=== PATIENT | female | born 1990 | race Caucasian/White ===

== ENCOUNTER → 2017-07-07 | Outpatient (CLI) | payer OTHER ==
[~2017-07-07] MED LIST: ACET-749 PO; BUSP15TA70 PO; CEPH-571 PO; MTR600X PO; PRENTAB65 PO; VALA500T39 PO
== END | disposition home or self-care (01) ==
LOC: C.LAB1850 07:34
PROVIDERS: ATTEND Obstetrics & Gynecology
DX: O09.00 Supervision of pregnancy with history of infertility, unspecified trimester (principal)

== ENCOUNTER → 2017-08-13 | Outpatient (CLI) | payer OTHER ==
[2017-08-13 15:33] LABS: BASO % 0.1 %; BASO ABS # 0.01 K/uL (0-0.2); COMPLETE YES; HEMATOCRIT 35.2 % (37-47); IG% 0.2 %; LYMPH % 23.7 %; LYMPH ABS # 2.08 K/uL (1.2-3.4); MEAN CELL VOLUME 85.6 fL (80-100); MEAN CORPUSCULAR HEMOGLOBIN 28.5 pg (25-34); MEAN CORPUSCULAR HGB CONC 33.2 g/dl (32-36); MEAN PLATELET VOLUME 11.8 fL (7.4-10.4); PLATELET COUNT 129 K/uL (130-400); RED BLOOD COUNT 4.11 M/uL (4.2-5.4); WHITE BLOOD COUNT 8.77 K/uL (4.8-10.8)
[2017-08-13 18:46] LABS: URINE APPEARANCE CLEAR (CLEAR); URINE BILIRUBIN NEG (NEG); URINE COLOR YELLOW; URINE EPITHELIAL CELL AUTO 20-30 /lpf (0-5); URINE NITRITE NEG (NEG); URINE PH 6.5 (4.5-7.5); URINE SPECIFIC GRAVITY 1.012 (1.000-1.030); UROBILINOGEN NEG (NEG)
[2017-08-13 19:04] LABS: MANUAL MICROSCOPIC REQUIRED? NO; REVIEW REQ? NO
== END | disposition home or self-care (01) ==
LOC: C.LAB1850 14:45
PROVIDERS: ATTEND Obstetrics & Gynecology
DX: O30.049 Twin pregnancy, dichorionic/diamniotic, unspecified trimester (principal)

== ENCOUNTER → 2017-08-13 | Outpatient (CLI) | payer OTHER | END | disposition home or self-care (01) | LOC: C.PAPS 09:55 | PROVIDERS: ATTEND Obstetrics & Gynecology | DX: Z34.90 Encounter for supervision of normal pregnancy, unspecified, unspecified trimester (principal) ==

== ENCOUNTER → 2017-12-17 | Outpatient (CLI) | payer OTHER ==
[~2017-12-17] MED LIST changes: +ACET-1311 PO
== END | disposition home or self-care (01) ==
LOC: C.LABSPEC 13:47
PROVIDERS: ATTEND Obstetrics & Gynecology
DX: Z34.83 Encounter for supervision of other normal pregnancy, third trimester (principal)

== ENCOUNTER → 2017-12-31 | Outpatient (CLI) | payer OTHER ==
[2017-12-31 16:32] LABS: HEMATOCRIT 34.7 % (37-47); HEMOGLOBIN 11.6 g/dL (12.0-16.0)
== END | disposition home or self-care (01) ==
LOC: C.LAB1850 15:16
PROVIDERS: ATTEND Obstetrics & Gynecology
DX: Z34.83 Encounter for supervision of other normal pregnancy, third trimester (principal); Z3A.00 Weeks of gestation of pregnancy not specified

== ENCOUNTER 2018-01-03 17:50 | Outpatient (CLI) | payer OTHER ==
[~2018-01-03] VITALS: Ht 157.5 cm; Wt 83.5 kg
[~2018-01-03 17:50] MED LIST changes: -ACET-1311 PO
[2018-01-03 19:16] VITALS: Ht 157.5 cm; Wt 83.5 kg
[2018-01-03] MEDS ORDERED: ACET-1311 PO (19:42)
== END 2018-01-03 19:51 | disposition home or self-care (01) ==
LOC: C.LD 17:50 → C.OPB 17:50
PROVIDERS: ATTEND Obstetrics & Gynecology
DX: O24.410 Gestational diabetes mellitus in pregnancy, diet controlled (principal); O30.043 Twin pregnancy, dichorionic/diamniotic, third trimester; O99.513 Diseases of the respiratory system complicating pregnancy, third trimester; J45.909 Unspecified asthma, uncomplicated; O99.333 Smoking (tobacco) complicating pregnancy, third trimester; F17.200 Nicotine dependence, unspecified, uncomplicated; Z3A.30 30 weeks gestation of pregnancy

== ENCOUNTER 2018-01-14 09:39 | Outpatient (CLI) | payer OTHER ==
[~2018-01-14] VITALS: Ht 157.5 cm; Wt 85.0 kg
[~2018-01-14 09:39] MED LIST changes: +ACET-1311 PO; -ACET-749 PO; -BUSP15TA70 PO; -CEPH-571 PO; -MTR600X PO; -VALA500T39 PO
[2018-01-14 10:58] VITALS: Ht 157.5 cm; Wt 85.0 kg
== END 2018-01-14 10:25 | disposition home or self-care (01) ==
LOC: C.OPB 09:39 → C.LD 09:39 → C.OPB 10:25
PROVIDERS: ATTEND Obstetrics & Gynecology
DX: O30.009 Twin pregnancy, unspecified number of placenta and unspecified number of amniotic sacs, unspecified trimester (principal); Z3A.00 Weeks of gestation of pregnancy not specified

== ENCOUNTER 2018-01-22 08:31 | Outpatient (CLI) | payer OTHER | END 2018-01-22 09:22 | disposition home or self-care (01) | LOC: C.OPB 08:31 → C.LD 08:31 → C.OPB 09:22 | PROVIDERS: ATTEND Obstetrics & Gynecology | DX: O30.009 Twin pregnancy, unspecified number of placenta and unspecified number of amniotic sacs, unspecified trimester (principal); Z3A.00 Weeks of gestation of pregnancy not specified ==

== ENCOUNTER → 2018-01-28 | Outpatient (CLI) | payer OTHER ==
[~2018-01-28] MED LIST changes: -ACET-1311 PO; +AZEL0.055 OP
== END | disposition home or self-care (01) ==
LOC: C.LABSPEC 10:04
PROVIDERS: ATTEND Obstetrics & Gynecology
DX: Z34.83 Encounter for supervision of other normal pregnancy, third trimester (principal)

== ENCOUNTER 2018-01-29 11:20 | Outpatient (CLI) | payer OTHER ==
[~2018-01-29 11:20] MED LIST changes: -AZEL0.055 OP
== END 2018-01-29 12:30 | disposition home or self-care (01) ==
LOC: C.OPB 11:20 → C.LD 11:20 → C.OPB 12:16
PROVIDERS: ATTEND Obstetrics & Gynecology
DX: O30.009 Twin pregnancy, unspecified number of placenta and unspecified number of amniotic sacs, unspecified trimester (principal); Z3A.00 Weeks of gestation of pregnancy not specified

== ENCOUNTER 2018-01-31 00:06 | Outpatient (CLI) | payer OTHER ==
[~2018-01-31] VITALS: Ht 157.5 cm; Wt 87.1 kg
[2018-01-31] MEDS ORDERED: AZEL0.055 OP (01:43)
== END 2018-01-31 00:53 | disposition other institution (70) ==
LOC: C.LD 00:06 → C.OPB 00:06
PROVIDERS: ATTEND Obstetrics & Gynecology
DX: O26.893 Other specified pregnancy related conditions, third trimester (principal); R10.9 Unspecified abdominal pain; O30.003 Twin pregnancy, unspecified number of placenta and unspecified number of amniotic sacs, third trimester; Z3A.34 34 weeks gestation of pregnancy

== ENCOUNTER 2018-01-31 00:58 | Emergency (ER) | payer OTHER ==
[~2018-01-31] VITALS: Ht 157.5 cm; Wt 89.5 kg
[2018-01-31 01:02] VITALS: TEMP 36.5; Ht 157.5 cm; Wt 89.5 kg
[2018-01-31] MEDS ORDERED: SODIUM CHLORIDE 0.9% 1000ML 1,000 ML IV STA ×2 (01:07→02:51)
[2018-01-31] MEDS ORDERED: FENTANYL CITRATE INJ 50 MCG/1 ML 2 ML VIAL IV STA (01:07)
[2018-01-31] MEDS ORDERED: GI COCKTAIL PO STA (01:07)
[2018-01-31] MEDS ORDERED: ALUMINUM/MAGNESIUM SUSP 30 ML UDC ONE (01:18)
[2018-01-31] MEDS ORDERED: LIDOCAINE HCL 2% VISC SOLN 20 ML UDC ONE (01:19)
[2018-01-31 01:24] LABS: BASO % 0.1 %; BASO ABS # 0.01 K/uL (0-0.2); EOS % 0.5 %; EOS ABS # 0.06 K/uL (0-0.5); HEMATOCRIT 32.9 % (37-47); HEMOGLOBIN 11.4 g/dL (12.0-16.0); IG# 0.15 K/uL (0.00-0.02); LYMPH % 13.9 %; LYMPH ABS # 1.59 K/uL (1.2-3.4); MEAN CORPUSCULAR HEMOGLOBIN 28.4 pg (25-34); MEAN CORPUSCULAR HGB CONC 34.7 g/dl (32-36); MEAN PLATELET VOLUME 11.3 fL (7.4-10.4); MONO ABS # 0.69 K/uL (0.11-0.59); NEUT % 78.2 %; NEUT ABS # 8.92 K/uL (1.4-6.5); PLATELET COUNT 144 K/uL (130-400); RED CELL DISTRIBUTION WIDTH CV 13.3 % (11.5-14.5); RED CELL DISTRIBUTION WIDTH SD 39.9 fL (36.4-46.3); WHITE BLOOD COUNT 11.42 K/uL (4.8-10.8)
--- NOTE | 2018-01-31 01:30 | EMERGENCY ROOM VISIT NOTE ---
History Report prepared by Miguel: Tahir Magallon Under the Supervision of: Dr. Iván Landa M.D. First contact with patient: 01:02 Chief Complaint: CHEST PAIN Stated Complaint: CHEST PAIN History of Present Illness The patient is a 27 year old female who presents to the Emergency Room with complaints of waxing and waning epigastric pain that began prior to arrival. Patient states that gets "waves" of pain every 3-5 minutes. Patient states that the pain radiates to her upper back. Patient states that her pain is worsened with deep breaths and when lying down. She adds that she has dyspnea. She adds that it feels like her "entire body is on fire". Patient is 34 weeks with twins. She states that this is her second . Patient states that she does not have a history of blood clots. She states that her mother has a history of blood clots in her legs in her 40s. Patient denies leg swelling or leg cramping. She denies a history of kidney or gallbladder problems. Source of History: patient Onset: Prior to arrival Position: abdomen (Epigastric), back (upper) Timing: worsening Modifying Factors (Worsening): breathing (Deep breaths), other (Lying down) Associated Symptoms: + SOB, + abdominal pain, + back pain Review of Systems See HPI for pertinent positives & negatives. A total of 10 systems reviewed and were otherwise negative. Past Medical & Surgical Medical Problems: (1) 30 weeks gestation of (2) Abdominal pain affecting (3) Carrier of group B Streptococcus (4) Prolonged , antepartum (5) Supervision of other normal (6) Twin in third trimester (7) Uterine cramping Family History Blood clots Social History Smoking Status: Former Smoker Housing Status: lives with significant other Current/Historical Medications Scheduled Azelastine Hcl (Ophth) (Azelastine Hcl), 1 DROPS OP BID Multivit (), 1 TAB PO DAILY Allergies Coded Allergies: Codeine (Verified Allergy, Intermediate, GI SYMPTOMS, 01/31/18) NAUSEA/VOMITTING Sulfa Antibiotics (Verified Allergy, Intermediate, GI SYMPTOMS, 01/31/18) NAUSEA/VOMITTING Physical Exam Vital Signs Date Time Temp Pulse Resp B/P (MAP) Pulse Ox O2 Delivery O2 Flow Rate FiO2 01/31/18 05:43 78 18 126/70 97 01/31/18 05:02 92 01/31/18 04:30 91 17 126/70 98 Room Air 01/31/18 02:34 82 19 124/67 95 Room Air 01/31/18 01:23 88 01/31/18 01:07 97 Room Air 01/31/18 01:02 36.5 86 18 124/66 99 Room Air Physical Exam GENERAL: Patient is uncomfortable appearing and in moderate distress. Patient has waves of pain in which she grabs her abdomen and starts hyperventilating which resolves after 10-15 seconds. EYES: No scleral icterus, unremarkable pupils. ENT: Mucous membranes moist, no nasal congestion. NECK: No masses appreciated, no meningismus, trachea is midline. RESPIRATORY: No dyspnea. Clear to auscultation and equal bilaterally. No wheeze , no rhonchi. CARDIOVASCULAR: Regular rate and rhythm. No murmurs, rubs, gallops appreciated. GASTROINTESTINAL: Large abdomen with gravid uterus and can feel baby/babies periodically kicking. No peritonitis. Bowel sounds positive. BACK: No midline tenderness, no CVA tenderness EXTREMITIES: Normal motion all extremities, no cyanosis, no edema. NEUROLOGIC: Alert and oriented, no acute motor or sensory deficits, no focal weakness, cranial nerves grossly intact. SKIN: No rash, no jaundice, no diaphoresis. Medical Decision & Procedures ER Provider Diagnostic Interpretation: Stat Rad Radiology results and stated below per my review and radiologist interpretation: CTA CHEST: No evidence of pulmonary embolus or aortic dissection. Lungs are clear. Spleen is mildly prominent. Radiologist: Kyle Barker DO US RUQ: Multiple gallstones and sludge layering within the gallbladder. No evidence of wall thickening or pericholecystic fluid. Common bile duct measures 5 mm in diameter. Mild right renal hydronephrosis likely due to gravid uterus. Visualized portions of the liver unremarkable. Pancreas obscured by bowel gas. Radiologist: Kyle Barker DO Laboratory Results 01/31/18 01:14 Red Blood Count 4.01, Mean Corpuscular Volume 82.0, Mean Corpuscular Hemoglobin 28.4, Mean Corpuscular Hemoglobin Concent 34.7, Mean Platelet Volume 11.3, Neutrophils (%) (Auto) 78.2, Lymphocytes (%) (Auto) 13.9, Monocytes (%) (Auto) 6.0, Eosinophils (%) (Auto) 0.5, Basophils (%) (Auto) 0.1, Neutrophils # (Auto) 8.92, Lymphocytes # (Auto) 1.59, Monocytes # (Auto) 0.69, Eosinophils # (Auto) 0.06, Basophils # (Auto) 0.01 01/31/18 01:14 Test 01/31/18 01:14 01/31/18 02:30 White Blood Count 11.42 K/uL (4.8-10.8) Red Blood Count 4.01 M/uL (4.2-5.4) Hemoglobin 11.4 g/dL (12.0-16.0) Hematocrit 32.9 % (37-47) Mean Corpuscular Volume 82.0 fL (80-100) Mean Corpuscular Hemoglobin 28.4 pg (25-34) Mean Corpuscular Hemoglobin Concent 34.7 g/dl (32-36) Platelet Count 144 K/uL (130-400) Mean Platelet Volume 11.3 fL (7.4-10.4) Neutrophils (%) (Auto) 78.2 % Lymphocytes (%) (Auto) 13.9 % Monocytes (%) (Auto) 6.0 % Eosinophils (%) (Auto) 0.5 % Basophils (%) (Auto) 0.1 % Neutrophils # (Auto) 8.92 K/uL (1.4-6.5) Lymphocytes # (Auto) 1.59 K/uL (1.2-3.4) Monocytes # (Auto) 0.69 K/uL (0.11-0.59) Eosinophils # (Auto) 0.06 K/uL (0-0.5) Basophils # (Auto) 0.01 K/uL (0-0.2) RDW Standard Deviation 39.9 fL (36.4-46.3) RDW Coefficient of Variation 13.3 % (11.5-14.5) Immature Granulocyte % (Auto) 1.3 % Immature Granulocyte # (Auto) 0.15 K/uL (0.00-0.02) D-Dimer 970 ug/L FEU (0-500) Anion Gap 7.0 mmol/L (3-11) Est Creatinine Clear Calc Drug Dose 141.5 ml/min Estimated GFR () 142.0 Estimated GFR (Non- 122.5 BUN/Creatinine Ratio 13.4 (10-20) Calcium Level 8.1 mg/dl (8.5-10.1) Total Bilirubin 0.8 mg/dl (0.2-1) Direct Bilirubin 0.5 mg/dl (0-0.2) Aspartate Amino Transf (AST/SGOT) 27 U/L (15-37) Alanine Aminotransferase (ALT/SGPT) 22 U/L (12-78) Alkaline Phosphatase 158 U/L (45-117) Troponin I < 0.015 ng/ml (0-0.045) Total Protein 6.3 gm/dl (6.4-8.2) Albumin 2.5 gm/dl (3.4-5.0) Lipase 193 U/L (73-393) Urine Color DK YELLOW Urine Appearance CLOUDY (CLEAR) Urine pH >= 9.0 (4.5-7.5) Urine Specific [place] 1.017 (1.000-1.030) Urine Protein NEG (NEG) Urine Glucose (UA) NEG (NEG) Urine Ketones 1+ (NEG) Urine Occult Blood NEG (NEG) Urine Nitrite NEG (NEG) Urine Bilirubin NEG (NEG) Urine Urobilinogen NEG (NEG) Urine Leukocyte Esterase SMALL (NEG) Urine WBC (Auto) 1-5 /hpf (0-5) Urine RBC (Auto) 0-4 /hpf (0-4) Urine Hyaline Casts (Auto) 0 /lpf (0-5) Urine Epithelial Cells (Auto) >30 /lpf (0-5) Urine Bacteria (Auto) NEG (NEG) Medications Administered Medications (Trade) Dose Ordered Sig/Anai Route Start Time Stop Time Status Last Admin Dose Admin Sodium Chloride 1,000 ml @ 999 mls/hr Q1H1M STAT IV 01/31/18 01:07 01/31/18 02:07 DC 01/31/18 01:23 999 MLS/HR Fentanyl Citrate (Fentanyl Inj) 50 mcg NOW STAT IV 01/31/18 01:07 01/31/18 01:09 DC 01/31/18 01:21 50 MCG Al Hydroxide/Mg Hydroxide (Maalox Susp) 30 ml STK-MED ONCE .ROUTE 01/31/18 01:18 01/31/18 01:19 DC 01/31/18 01:21 30 ML Lidocaine HCl (Viscous Lidocaine 2% Soln) 20 ml STK-MED ONCE .ROUTE 01/31/18 01:19 01/31/18 01:20 DC 01/31/18 01:21 20 ML Sodium Chloride 1,000 ml @ 999 mls/hr Q1H1M STAT IV 01/31/18 02:51 01/31/18 03:51 DC 01/31/18 02:51 999 MLS/HR ED Course 0100: The patient was evaluated in room B12. A complete history and physical exam was performed. 0113: I performed a bedside fast ultrasound on the patient. There was no evidence of free fluid in abdomen, right and left kidney without free fluid, gallbladder mildly distended with posterior shadowing, difficult to appreciate due to enlarged uterus. Ultrasound uterus shows twin gestations with positive heart rate and shows right infant is head up and left head down. 0154: I discussed with the patient the risk and benefits of a CT scan. Patient is agreeable to having the CT scan performed. Patient states that she is feeling better but still has shortness of breath and that it is periodically worse with her contractions. Medical Decision 27 yr old female at 34 wks with twins arrives in significant distress grabbing mid abdomen from waves of pain every 3 to 5 minutes associated with contractions of abdomen by exam. She was initially sent to L&D where she was not felt to be in labor and sent down her for further evaluation because of level of pain and shortness of breath. She does note however severe shob with these episodes. She has family history of dvts. She is quite dyspneic with this thus went ahead with dimer which when positive I had long discussion regarding risks/benefits and she and wish to proceed with CT PE which was fortunately negative. US GB without infection swelling though does show stones/sludge. There is no significant bili elevation nor ast/alt elevation. She does not have specific RUQ TTP. I do not feel this is acute cholecystitis though reviewed symptoms that would require return. Advised follow up with PCP post for further discussion of gallbladder findings. There is no free fluid appreciated on my bedside US of abdomen. Both fetuses are moving with +FHT. She was in so much discomfort on arrival I opted to give single dose of fentanyl with mild improvement in pain. After 2 L NSS bolus she has had resolution of her discomfort and only periodic mild contractions. She has had no vaginal discharge nor has her water broke. She has already been evaluated by OB who feel she is not in labor and does not need further evaluation by them. I called back once entire work-up here was complete and they still feel that she does not need to come back upstairs. I opted to watch patient for several more hours to make sure no further issues. She is feeling well and wishes to go home. Discussed light bland diet over next few days and keeping well hydrated. While this could be severe gastritis causing unusual symptoms, I suspect primary pain was due to contractions she was having on exam. She is aware we are always here to evaluate her further and that she can return at any time. She does have twins and I suspect is getting close to delivering but at 34 weeks she is hoping to get to at least 35 weeks to avoid NICU stays. and patient happy and comfortable with discharge. Medication Reconcilliation Current Medication List: was personally reviewed by me Blood Pressure Screening Patient's blood pressure: Normal blood pressure Impression Primary Impression: Epigastric abdominal pain Additional Impressions: Abdominal pain affecting Elevated d-dimer contractions Dehydration Gallstones Scribe Attestation The scribe's documentation has been prepared under my direction and personally reviewed by me in its entirety. I confirm that the note above accurately reflects all work, treatment, procedures, and medical decision making performed by me. Departure Information Referrals Joaquim Castillo M.D. (PCP) Patient Instructions My [facility] Additional Instructions Keep well hydrated over the next few days. Avoid over exertion. Avoid foods that are spicy, tomato based, chocolate based and caffiene. If worsening symptoms, or other signs of labor return immediately or call 911. There is sludge/stones in your gallbladder. Currently this is likely not causing any issues but should be further evaluated by primary provider and possible other studies may need to be done (ie HIDA scan) or follow up with Surgeon. Problem Qualifiers
[2018-01-31 01:42] LABS: ALBUMIN 2.5 gm/dl (3.4-5.0); ALT/SGPT 22 U/L (12-78); AST/SGOT 27 U/L (15-37); BLOOD UREA NITROGEN 8 mg/dl (7-18); CALCIUM 8.1 mg/dl (8.5-10.1); CARBON DIOXIDE 25 mmol/L (21-32); CREATININE 0.61 mg/dl (0.60-1.20); GLUCOSE 112 mg/dl (70-99); LIPASE 193 U/L (73-393); POTASSIUM 3.2 mmol/L (3.5-5.1); SODIUM 138 mmol/L (136-145)
[2018-01-31] MEDS ORDERED: AZEL0.055 OP (01:43)
[2018-01-31 01:47] LABS: ALKALINE PHOSPHATASE 158 U/L (45-117); TOTAL PROTEIN 6.3 gm/dl (6.4-8.2)
[2018-01-31] MEDS ORDERED: OPTIRAY 320 IV PRN (03:15)
[2018-01-31 05:43] VITALS: BP 126/70; PULSE 78; O2SAT 97
--- NOTE | 2018-01-31 06:46 | DIAGNOSTIC IMAGING REPORT ---
BILIARY ULTRASOUND CLINICAL HISTORY: epigastric pain, 34 wks COMPARISON STUDY: No previous studies for comparison. FINDINGS: The pancreas was nonvisualized. There are multiple gallstones present. Gallbladder sludge is also identified. There is no ductal dilatation. There is no gallbladder wall thickening present. There is no pericholecystic fluid. The common bile duct measured 5 mm. No focal hepatic masses are visualized. There is mild dilatation of the right renal collecting system. IMPRESSION: 1. Cholelithiasis. No evidence of ductal dilatation 2. Mild right-sided hydronephrosis, possibly secondary to 3. Nondiagnostic evaluation of the pancreas Electronically signed by: Mio Harkins M.D. 01/31/2018 6:45 AM Dictated Date/Time: 01/31/2018 6:43 AM
--- NOTE | 2018-01-31 07:52 | DIAGNOSTIC IMAGING REPORT ---
(CHEST FOR PE) ANGIO WITH CLINICAL HISTORY: 27 years-old Female presenting with ^severe SHOB and lower chest pains. 34 wk . ^Family history of DVT. Pt with +Dimer. 34wk . TECHNIQUE: Multidetector CT angiography of the chest was performed after administration of intravenous contrast. 3-D volumetric and/or maximum intensity projection (MIP) images were subsequently reconstructed for review. IV contrast: 93 mL of Optiray 320. A dose lowering technique was used consistent with the principles of ALARA (as low as reasonably achievable). COMPARISON: None. CT DOSE (mGy.cm): The estimated cumulative dose is 294.80 mGy.cm. FINDINGS: Lumber Stacker Driver topogram: Unremarkable. Pulmonary vasculature: The study is adequate for assessment of the pulmonary vascular tree. No filling defect within the pulmonary arteries to suggest embolus. Main pulmonary artery is not enlarged. No flattening of the interventricular septum. No intracardiac filling defect. No reflux of contrast into the hepatic veins. Remaining chest: On soft tissue windows, normal thyroid and thoracic inlet. No axillary, supraclavicular, hilar, or mediastinal lymphadenopathy. Normal aorta. Normal heart size. No pericardial or pleural effusion. Upper abdomen normal. On lung windows, minimal dependent changes likely atelectasis. No other focal nodule or infiltrate. Airways patent. On bone windows, normal osseous structures. IMPRESSION: 1. No evidence of pulmonary embolus. No acute cardiopulmonary disease. Electronically signed by: Aleksander Luo M.D. 01/31/2018 7:51 AM Dictated Date/Time: 01/31/2018 6:55 AM
== END 2018-01-31 05:59 | disposition home or self-care (01) ==
LOC: C.EDB 00:59
DX: O26.893 Other specified pregnancy related conditions, third trimester (principal); R10.13 Epigastric pain; O60.03 Preterm labor without delivery, third trimester; O99.613 Diseases of the digestive system complicating pregnancy, third trimester; K80.20 Calculus of gallbladder without cholecystitis without obstruction; R79.89 Other specified abnormal findings of blood chemistry; O99.283 Endocrine, nutritional and metabolic diseases complicating pregnancy, third trimester; E86.0 Dehydration; Z3A.34 34 weeks gestation of pregnancy; Z87.891 Personal history of nicotine dependence; Z88.5 Allergy status to narcotic agent; Z88.2 Allergy status to sulfonamides

== ENCOUNTER 2018-02-11 15:41 | Inpatient (IN) | payer OTHER ==
[~2018-02-11] VITALS: Ht 157.5 cm; Wt 88.6 kg
[~2018-02-11 15:41] MED LIST changes: +AZEL0.055 OP
[2018-02-11 16:44] VITALS: Ht 157.5 cm; Wt 88.6 kg
[2018-02-11] MEDS ORDERED: LACTATED RINGER'S 1000ML 1,000 ML IV PRN (17:24)
[2018-02-11] MEDS ORDERED: CITRIC ACID/SODIUM CITRATE 15 ML UDC PO ONE (17:30)
[2018-02-11 17:52] LABS: BASO % 0.1 %; BASO ABS # 0.01 K/uL (0-0.2); HEMATOCRIT 32.2 % (37-47); IG# 0.08 K/uL (0.00-0.02); LYMPH % 17.6 %; MEAN CELL VOLUME 82.4 fL (80-100); MEAN CORPUSCULAR HEMOGLOBIN 28.1 pg (25-34); MEAN PLATELET VOLUME 11.3 fL (7.4-10.4); MONO % 6.9 %; MONO ABS # 0.67 K/uL (0.11-0.59); NEUT % 73.6 %; NEUT ABS # 7.12 K/uL (1.4-6.5); PLATELET COUNT 132 K/uL (130-400); RED CELL DISTRIBUTION WIDTH CV 13.4 % (11.5-14.5); RED CELL DISTRIBUTION WIDTH SD 40.5 fL (36.4-46.3); WHITE BLOOD COUNT 9.68 K/uL (4.8-10.8)
[2018-02-11] MEDS ORDERED: MoRPHine SULFATE PF 1 MG/ML 10 ML AMP/VIAL ONE (17:55)
[2018-02-11] MEDS ORDERED: FENTANYL CITRATE INJ 50 MCG/1 ML 2 ML VIAL ONE (17:55)
[2018-02-11] MEDS ORDERED: OXYTOCIN INJ 10 UNITS/ML VIAL ONE ×2 (17:55→19:14)
[2018-02-11] MEDS ORDERED: CEFAZOLIN IV 2,000 MG in SYRINGE 0 ML IV SCH (18:00)
[2018-02-11 18:02] LABS: MEAN CORPUSCULAR HGB CONC 34.2 g/dl (32-36)
[2018-02-11] MEDS: LACTATED RINGER'S 1000ML 1,000 ML IV SCH (18:08)
--- NOTE | 2018-02-11 18:24 | HISTORY & PHYSICAL EXAMINATION ---
DATE OF ADMISSION: 02/11/2018 ADMITTING DIAGNOSES: 1. Complicated at 36 weeks gestational age. 2. Diamniotic dichorionic twin gestation. 3. Discordant growth. 4. Reverse end diastolic flow of baby B. 5. Diet controlled gestational diabetes. ADMISSION HISTORY: The patient is a 27-year-old 2, para 1 with an EDC of 11 March at 36 and 0/7 weeks gestational age who is admitted for a di/di twin with discordance and reversed end diastolic flow of baby B. Patient was seen in the office today for routine care. Her twin gestation had been diagnosed in the first trimester and she had been followed per a di/di protocol. Patient had been having growth ultrasounds which showed slight discrepancy between the babies. The babies are male and female. Patient was seen today for a growth scan which showed baby A at the 50th percentile, baby B at the 5th percentile with reverse end diastolic flow. The case was discussed with Dr. Omer Candelaria, maternal medicine specialist in [place] who recommended admission and delivery. Patient's course was remarkable for gestational diabetes, diet controlled. Laboratory values for the show a blood type of A positive, antibody negative, rubella immune, hepatitis B negative. She had a negative cell free DNA screening and a positive third trimester beta strep culture. PAST MEDICAL HISTORY: OB: x1. 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 ADMISSION PHYSICAL EXAMINATION: GENERAL: Today showed a gravid female in no acute distress. VITAL SIGNS: Show a blood pressure of 118/60 and a weight of 195 pounds. HEENT EXAMINATION: Unremarkable. NECK: Supple. LUNGS: Clear. HEART: With a regular rhythm and rate. ABDOMEN: Gravid with twin gestation, vertex breech presentation. Positive heart tones, total estimated weight of 10 pounds. PELVIC: Cervix is closed and posterior. EXTREMITIES: Shows +1 edema. NEUROLOGIC: Grossly intact. IMPRESSION: A 27-year-old 2, para 1 36 and 0/7 weeks gestational age di/di twin gestation discordant growth with reverse end diastolic flow baby B. PLAN: As stated above, the case was discussed with Dr. Omer Candelaria, maternal- medicine specialist at [place] who recommended delivery because of the reverse flow. With the baby B in a breech presentation, the patient had previously opted for a planned primary section. Given the discordance and reverse end diastolic flow, I do not believe induction of labor is prudent. The risks, benefits and alternatives to the delivery have been discussed. While the benefits will be delivery of the , the risks are bleeding, infection, inadvertent injury to bowel or bladder, readmission or reoperation. The patient understands this, the permit has been signed and she wishes to proceed.
[2018-02-11] MEDS ORDERED: CARBOPROST TROMETHAMINE 250 MCG/ML AMP ONE ×2 (19:05→19:12)
[2018-02-11] MEDS ORDERED: METHYLERGONOVINE MALEATE 0.2 MG/ML AMP ONE (19:05)
[2018-02-11] MEDS ORDERED: PHENYLEPHRINE 100MCG/ML 5ML SYR ONE (19:16)
[2018-02-11] MEDS ORDERED: LACTATED RINGER'S 1000ML 500 ML IV PRN (19:17)
[2018-02-11] MEDS ORDERED: NALOXONE HCL INJ 0.08 MG in SYRINGE 1.8 ML IV PRN (19:17)
[2018-02-11] MEDS ORDERED: SODIUM CHLORIDE 0.9% 1000ML 1,000 ML IV PRN (19:17)
[2018-02-11] MEDS ORDERED: NALOXONE HCL INJ 1 MG in SODIUM CHLORIDE 0.9% 1000ML 1,000 ML IV PRN (19:17)
[2018-02-11] MEDS ORDERED: KETOROLAC TROMETHAMINE 30 MG/ML VIAL ONE (19:24)
[2018-02-11] MEDS ORDERED: MEPERIDINE HCL 25 MG/ML CARP IV PRN (19:30)
[2018-02-11] MEDS ORDERED: SUPERCREAM 0.870 % 15GM JAR EXT PRN (19:30)
[2018-02-11] MEDS ORDERED: ONDANSETRON INJ 2 MG/ML 2 ML VIAL IV PRN (19:30)
[2018-02-11] MEDS ORDERED: EpHEDrine SULFATE INJ 50 MG/ML AMP IV PRN (19:30)
[2018-02-11] MEDS ORDERED: HYDROCORTISONE ACETATE 25 MG SUPP PR PRN (19:30)
[2018-02-11] MEDS ORDERED: BENZOCAINE 20% AER SPR 82.5 GM CAN EXT PRN (19:30)
[2018-02-11] MEDS ORDERED: MoRPHine SULFATE PF 1 MG/ML 10 ML AMP/VIAL EPI PRN (19:30)
[2018-02-11] MEDS ORDERED: LANOLIN OINT EXT PRN (19:30)
[2018-02-11] MEDS ORDERED: DiphenhydrAMINE HCL 50 MG/ML VIAL IV PRN (19:30)
[2018-02-11] MEDS ORDERED: DIPHTHERIA/TETANUS/PERTUSSIS 0.5 ML SYR/VIAL IM. ONE (19:30)
[2018-02-11] MEDS ORDERED: NALBUPHINE HCL INJ 10 MG/ML AMP IV PRN (19:30)
[2018-02-11] MEDS ORDERED: NO NARCOTICS OR SEDATIVES SCH (19:30)
[2018-02-11] MEDS ORDERED: NALOXONE HCL 0.4 MG/1 ML VIAL/CARP IV PRN (19:30)
--- NOTE | 2018-02-11 19:37 | [facility] Post Operative Brief Note ---
Immediate Operative Summary Operative Date February 11, 2018. Pre-Operative Diagnosis 1 ) Complicated 36 weeks GA 2) Di/Di Twin 3) DIscordant growth 4) Reverse enddiastolic flow, Baby B 5) Gestational Diabetes Post-Operative Diagnosis Same Procedure(s) Performed Primary low cervical transverse C/S Surgeon Jam Mobile Device Developer Surgeon(s) Marie Estimated Blood Loss 800 Findings See Below (Viable twin gestation, Baby A, male, vtx, 5lbs 15ozs, Apgars 9/9, gasses pending, Baby B, female, rosendo breech, Apgars 9/9, weight 4lbs 7 ozs, nml tubes and ovaries bilaterally) as described Fluids (cc crystalloids) 2100 Specimens 1) Placenta "A" 2) Placenta "B" 3) Cord gasses "A" 4) Cord gasses "B" Drains Akbar to gravity Anesthesia Type Spinal Complication(s) none Disposition Accompanied Pt To Recover: yes Disposition: L&D
[2018-02-11] MEDS ORDERED: LACTATED RINGER'S 1000ML 1,000 ML IV SCH (20:00)
[2018-02-11] MEDS ORDERED: ACETAMINOPHEN IV 100 ML IV PRN (20:00)
--- NOTE | 2018-02-11 20:25 | Anesthesiology Progress Note ---
Anesthesia Post Op Note Date & Time February 11, 2018 at 20:24 Vital Signs Pain Intensity: 0.0 Notes Mental Status: alert / awake / arousable, participated in evaluation Nausea / Vomiting: adequately controlled Pain: adequately controlled Airway Patency, RR, SpO2: stable & adequate BP & HR: stable & adequate Hydration State: stable & adequate Neuraxial Anesthesia: was administered, sensory block is resolving Anesthetic Complications: no major complications apparent
[2018-02-11] MEDS: OXYTOCIN INJ 20 UNITS in LACTATED RINGER'S 1000ML 1,000 ML IV SCH (21:57)
[2018-02-11 22:25] VITALS: BP 130/74; PULSE 83; TEMP 36.7; O2SAT 98
--- NOTE | 2018-02-11 23:15 | OPERATIVE REPORT ---
DATE OF OPERATION: 02/11/2018 PREOPERATIVE DIAGNOSES: 1. Complicated at 36 weeks' gestational age. 2. Di/di twin gestation. 3. Discordant growth. 4. Reverse end-diastolic blood flow baby B. 5. Gestational diabetes. POSTOPERATIVE DIAGNOSES: 1. Complicated at 36 weeks' gestational age. 2. Di/di twin gestation. 3. Discordant growth. 4. Reverse end-diastolic blood flow baby B. 5. Gestational diabetes. PROCEDURE PERFORMED: Primary low cervical transverse section. SURGEON: Dr. Polk. TERRAZZO POLISHER HELPER: Dr. Tanya Salazar. ANESTHESIA: Spinal. FINDINGS: Baby A delivered from vertex presentation, viable male infant with Apgars of 9 and 9 and a weight of 5 pounds 15 ounces. Arterial and venous cord gases pending. Baby B delivered from a rosendo breech presentation, female, Apgars of 9 and 9 and a weight of 4 pounds 7 ounces. Arterial and venous cord gases pending. Placenta is sent for pathological evaluation. Normal appearing adnexa bilaterally. PROCEDURE IN DETAIL: The patient was taken to the operating room and after spinal anesthesia was placed in supine position and draped and prepped in the usual fashion. Pfannenstiel type incision was made. Underlying subcutaneous tissue was dissected down to the ventral abdominal fascia, which was nicked and opened in a horizontal manner. Preperitoneal fascia was dissected away until the peritoneal cavity was entered and opened in a vertical manner. Bladder blade was placed. Peritoneum overlying the uterus was elevated, opened in a semi-lunar fashion, the inferior margin of which was taken down creating the bladder flap. The uterus was entered sharply. Baby A's membranes were ruptured and was delivered from a vertex presentation. Cord was clamped and cut and the baby was passed off to pediatrics who was in attendance for the delivery. Membranes for baby B was ruptured and baby B was delivered from a rosendo breech presentation. Cord was clamped and cut and the baby was passed off to pediatrics. Cord gases, cord blood samples obtained for both babies. Placentas were delivered manually and sent for pathological evaluation. Uterine cavity was exteriorized. Uterine cavity was wiped clean of any residual blood tissue and/or clot. The patient received Hemabate 125 mcg directly into the myometrium. Uterine incision was closed with 2 layers of 4-0 Vicryl, the first a running locking stitch, the second an imbricating stitch. Hemostasis was achieved and the uterus was returned to the pelvic cavity. The pericolic gutters were cleared bilaterally of any blood tissue and/or clot. The pelvis was thoroughly irrigated with 1000 mL of warm saline. Uterine incision was inspected again for hemostasis, which was present. Sponge and needle count was correct. The rectus muscle was plicated in the midline with a running 2-0 Vicryl stitch. The fascia was closed laterally with a running 0 Vicryl suture. Subcutaneous tissue was irrigated with warm saline and the skin incision was closed with a 4-0 Monocryl subcuticular suture. Sterile dressing was applied and the patient was taken to the recovery room in satisfactory condition. I attest to the content of the Intraoperative Record and any orders documented therein. Any exception s are noted below.
[2018-02-11 23:25] VITALS: O2SAT 100
[2018-02-12] VITALS (17 sets, daily range): BP systolic 107–132; BP diastolic 69–74; PULSE 79–98; TEMP 36.5–37; O2SAT 94–100
[2018-02-12] MEDS: KETOROLAC TROMETHAMINE 30 MG/ML VIAL IV. PRN ×2 (01:42→11:17)
--- NOTE | 2018-02-12 06:50 | Progress Note ---
Subjective February 12, 2018. Subjective conversation w/ patient Ambulation: limited ambulation Voiding: disla catheter in place Passing Gas: No Diet Tolerance: Clear Liquids Lochia: Moderate Feeding Type: Breast Feeding Pain: 6/10, localized to her incision. Worse with movement & improved w/ analgesia Review of Systems Constitutional: No fever, No chills Respiratory: No shortness of breath Cardiac: No chest pain Abdomen: No nausea, No vomiting Objective Vital Signs Date Time Temp Pulse Resp B/P (MAP) Pulse Ox O2 Delivery O2 Flow Rate FiO2 02/12/18 05:25 16 94 02/12/18 04:25 18 96 02/12/18 03:25 16 100 02/12/18 03:25 36.5 90 16 126/74 (91) 100 Room Air 02/12/18 02:25 16 99 02/12/18 01:25 20 97 02/12/18 00:50 36.7 98 20 121/74 (90) 99 Room Air 02/12/18 00:50 99 Room Air 02/12/18 00:25 20 99 02/11/18 23:25 18 100 02/11/18 22:25 18 98 02/11/18 22:25 98 Room Air 02/11/18 22:25 98 Room Air 02/11/18 22:25 36.7 83 18 130/74 (92) 98 Room Air Physical Exam General Appearance: WELL-APPEARING, WD/WN, NO APPARENT DISTRESS Respiratory/Chest: lungs clear, normal breath sounds Cardiovascular: regular rate, rhythm Abdomen: soft Fundus: Firm, Tender, Relation to Umbilicus (1 below) Incision Description: Clean, Dry & Intact Extremities: no calf tenderness, + pedal edema Laboratory Results Last 24 Hours Test 02/11/18 17:36 02/11/18 18:13 02/12/18 06:28 White Blood Count 9.68 K/uL Red Blood Count 3.91 M/uL Hemoglobin 11.0 g/dL Hematocrit 32.2 % Mean Corpuscular Volume 82.4 fL Mean Corpuscular Hemoglobin 28.1 pg Mean Corpuscular Hemoglobin Concent 34.2 g/dl Platelet Count 132 K/uL Mean Platelet Volume 11.3 fL Neutrophils (%) (Auto) 73.6 % Lymphocytes (%) (Auto) 17.6 % Monocytes (%) (Auto) 6.9 % Eosinophils (%) (Auto) 1.0 % Basophils (%) (Auto) 0.1 % Neutrophils # (Auto) 7.12 K/uL Lymphocytes # (Auto) 1.70 K/uL Monocytes # (Auto) 0.67 K/uL Eosinophils # (Auto) 0.10 K/uL Basophils # (Auto) 0.01 K/uL RDW Standard Deviation 40.5 fL RDW Coefficient of Variation 13.4 % Immature Granulocyte % (Auto) 0.8 % Immature Granulocyte # (Auto) 0.08 K/uL Bedside Glucose 120 mg/dl Assessment and Plan Problem List Medical Problems: (1) Dehydration Status: Acute (2) Elevated d-dimer Status: Acute (3) Epigastric abdominal pain Status: Acute (4) Gallstones Status: Acute (5) contractions Status: Acute Post-Op Day#: 1 Continue Routine Care: 27F s/p for di/di twin with discrepancy between weight and reversed end diastolic flow of baby B day 1 - A+, Rubella Immune, GBS +ve - Vital signs reviewed and WNL - remove disla this AM - advance diet as tolerated - Encourage ambulation, monitor and control pain - pt will require f/u glucose tolerance test in office Resident Physician Supervision Note: I interviewed and examined the patient. Discussed with Dr. Keith and agree with findings and plan as documented in the note. Any exceptions or clarifications are listed here: Discussed surgery and findings with patient. Will remove Disla later today and begin ambulation. Documented By: Nahid Polk Resident Tracking Resident Involvement: Resident Care Provided Care Provided: OB Delivery
--- NOTE | 2018-02-12 07:01 | Discharge Instructions ---
Discharge Instructions Date of Service February 12, 2018. Admission Reason for Admission: Prolonged Monitering Discharge Discharge Diagnosis / Problem: Discharge Goals Goal(s): Routine recovery after Medications Continue Dispensed Medications: supercream, dermaplast, tucks, lansinoh Activity Recommendations Activity Limitations: per Instructions/Follow-up section . Instructions / Follow-Up Instructions / Follow-Up ACTIVITY RECOMMENDATIONS: * Gradual return to full activity over the next 2-3 weeks. * No lifting - nothing heavier than baby over the next 2-3 weeks. * Do not engage in vigorous exercise, sexual activity or sports until cleared by your physician. * Do not drive or operate any motorized equipment until cleared by your physician. * You may shower/bathe daily. MEDICATIONS: For discomfort or pain, you may use Acetaminophen (Tylenol), Ibuprofen (Advil), or Naproxen (Aleve) following the package directions. For constipation you may use Colace following the package directions. BREAST CARE: If you are not breast feeding: * Wear a supportive bra 24 hours a day for one to two weeks. * Avoid stimulating your breasts and nipples as much as possible during the first few weeks after delivery. * When taking a shower, have the warm water hit your back, not breasts. * When your breasts feel full, apply ice packs. Usually three to four times a day helps ease the discomfort. * Take a mild pain medication (Tylenol / Motrin) when you are uncomfortable. If breast feeding: * Use breast milk to lubricate nipples. Lansinoh cream may be used for sore nipples. You do not need to remove cream prior to breast feeding. If using a different brand of cream, check the label for directions regarding removal of cream prior to nursing. * Wear a supportive bra. * If having problems with breasts or breast feeding, call a technical solutions consultant or your health care provider. SPECIAL CARE INSTRUCTIONS: When you are discharged from the hospital, it is important for you to follow the instructions listed below: * During the first week at home, you should be able to care for yourself and your baby. In addition, the usual light household activities are encouraged. * Limit your activities to the way you feel. Do not try to clean the house or move furniture. Be sensible. * If you actively engage in sports and have done so up until the time of your delivery, you may resume these activities as soon as you feel able. This may take up to one month or even longer. Use good judgment. * Continue to take your vitamins for at least six weeks after the of your baby. * Your diet need not be limited unless you were on a special diet before your delivery. Breast-feeding mothers need around 2500 calories per day and at least 64-80 ounces of fluid per day (8 to 10 glasses). * You should eat foods from the four major food groups. Crash diets or fad diets are to be avoided. Eating lean meats, fresh fruits and vegetables, low-fat dairy products, high fiber foods and a regular exercise program, will help you get back to your pre- weight without putting your health at risk. * Constipation is sometimes a problem after delivery. Take a mild laxative as needed. If breast feeding, Milk of Magnesia is acceptable to use. You may use a suppository or Fleets enema. * A daily shower or tub bath is suggested. Wash incision daily with warm soapy water and pat dry. It doesn't need to be covered unless drainage is present. * A bloody vaginal discharge will usually continue until around four weeks . A small amount of bleeding may continue for as long as six weeks. Vaginal discharge changes from the bright red bleeding after delivery to pink then brownish and finally yellowish-pink before becoming white and disappearing. * Bleeding may increase with activity. Your first period may come in 4-8 weeks. If you are breast feeding, your period may be delayed even longer. * [place] (sex) can begin whenever both you and your partner feel comfortable and do not have any form of genital infection. It is recommended that you wait at least six weeks for internal and external healing to occur. If you have questions, please talk to your health care practitioner. A condom should be used to prevent infection and . * Foreplay, gentle intercourse and lubrication is very important the first several times to prevent pain. A water-based lubricant such as K-Y jelly or Astroglide may be used. * If you have RH negative blood and your baby is RH positive, you will receive RHOGAM by injection prior to discharge. The nurse will give you a card to keep with you that has the date and place that you received RHOGAM after delivery. * During your care, you had a Rubella screen done to check for the presence of rubella antibodies in your blood. If your test was negative, you will receive a Rubella vaccine prior to discharge. This vaccine may cause a fever, soreness at the injection site and flu-like symptoms. If these symptoms persist, notify your health care practitioner. is not advised for one month after a Rubella vaccine. * Verbalizes understanding of car seat law as reviewed with patient nursing. * Car Seat hand-out given and reviewed with patient by nursing. * Shaken baby information reviewed with patient by nursing. Call you doctor if: * Heavy bleeding (saturating several pads an hour) or passing clots the size of your fist. * A fever >101 degrees F (38.3 degrees C) on two occasions four hours apart and /or chills. * Unusual pain in the pelvic or vaginal areas. * Call the doctor for any increased redness, drainage or swelling around the incision and any pain unrelieved by prescribed pain medication. * "Baby Blues" lasting longer than two weeks. If you have any questions or concerns, call your health care practitioner at . FOLLOW UP VISIT: * Please call the office at to schedule a 6 week examination. It is important you keep this appointment. It is important for you to make arrangements for either yearly or twice yearly check-ups thereafter. Current Hospital Diet Patient's current hospital diet: Clear Liquid Diet Discharge Diet Recommended Diet: Regular Diet Procedures Procedures Performed: Primary caesarean section Pending Studies Studies pending at discharge: no Medical Emergencies . Who to Call and When: Medical Emergencies: If at any time you feel your situation is an emergency, please call [phone] immediately. . Non-Emergent Contact Non-Emergency issues call your: Primary Care Provider . . "Provider Documentation" section prepared by Mando Keith. .
[2018-02-12 07:09] LABS: BASO % 0.1 %; BASO ABS # 0.01 K/uL (0-0.2); EOS ABS # 0.09 K/uL (0-0.5); HEMATOCRIT 27.7 % (37-47); HEMOGLOBIN 9.4 g/dL (12.0-16.0); IG# 0.05 K/uL (0.00-0.02); LYMPH % 13.6 %; LYMPH ABS # 1.22 K/uL (1.2-3.4); MEAN CELL VOLUME 82.7 fL (80-100); MEAN CORPUSCULAR HEMOGLOBIN 28.1 pg (25-34); MEAN CORPUSCULAR HGB CONC 33.9 g/dl (32-36); MEAN PLATELET VOLUME 11.2 fL (7.4-10.4); MONO % 7.1 %; MONO ABS # 0.64 K/uL (0.11-0.59); NEUT % 77.6 %; NEUT ABS # 6.95 K/uL (1.4-6.5); PLATELET COUNT 108 K/uL (130-400); RED CELL DISTRIBUTION WIDTH CV 13.4 % (11.5-14.5); RED CELL DISTRIBUTION WIDTH SD 40.8 fL (36.4-46.3); WHITE BLOOD COUNT 8.96 K/uL (4.8-10.8)
[2018-02-12] MEDS: OXYTOCIN INJ 20 UNITS in LACTATED RINGER'S 1000ML 1,000 ML IV SCH (07:24)
[2018-02-12] MEDS ORDERED: ONDANSETRON INJ 2 MG/ML 2 ML VIAL IV PRN (12:30)
[2018-02-12] MEDS ORDERED: DiphenhydrAMINE HCL 50 MG/ML VIAL IV PRN (12:30)
[2018-02-12] MEDS ORDERED: DC INTRASPINAL MORPHINE SCH (12:30)
[2018-02-12] MEDS ORDERED: KETOROLAC TROMETHAMINE 30 MG/ML VIAL IV. PRN (12:30)
[2018-02-12] MEDS: IBUPROFEN 600 MG TAB PO PRN ×2 (16:03→20:35)
[2018-02-12] MEDS: OXYCODONE/ACETAMINOPHEN 5-325 TAB PO PRN ×2 (16:04→20:34)
[2018-02-12] MEDS: FERROUS SULFATE 325 MG TAB PO SCH (17:15)
[2018-02-12] MEDS: PRENATAL VITAMIN TAB PO SCH (17:15)
[2018-02-12] MEDS ORDERED: MAGNESIUM HYDROXIDE SUSP 30 ML UDC ONE (20:28)
[2018-02-12] MEDS: MAGNESIUM HYDROXIDE SUSP 30 ML UDC PO SCH (20:34)
[2018-02-12] MEDS: SENNA 8.6 MG TAB PO SCH (20:34)
[2018-02-13] MEDS: IBUPROFEN 600 MG TAB PO PRN ×5 (03:10→23:45)
[2018-02-13] MEDS: OXYCODONE/ACETAMINOPHEN 5-325 TAB PO PRN ×5 (03:10→19:39)
[2018-02-13 06:33] LABS: HEMATOCRIT 28.1 % (37-47); HEMOGLOBIN 9.2 g/dL (12.0-16.0)
[2018-02-13] MEDS: FERROUS SULFATE 325 MG TAB PO SCH (08:14)
[2018-02-13] MEDS: PRENATAL VITAMIN TAB PO SCH (08:14)
[2018-02-13 08:18] VITALS: BP 111/71; PULSE 80; TEMP 36.6
--- NOTE | 2018-02-13 08:37 | Progress Note ---
Subjective February 13, 2018. Subjective conversation w/ patient, physical exam Ambulation: ambulating normally Voiding: no voiding problems, idsla catheter in place Passing Gas: Yes Diet Tolerance: Regular Diet Lochia: Small Feeding Type: Breast Feeding Review of Systems Constitutional: No fever, No chills, No sweats, No weight loss, No weakness, No fatigue, No problem reported Breast: No see HPI, No breast lump, No change in shape, No nipple discharge, No breast pain, No problem reported Abdomen: No pain, No nausea, No vomiting, No diarrhea, No constipation, No GI bleeding, No problem reported Female : No see HPI, No dysuria, No urinary frequency, No hematuria, No incontinence, No abnormal vaginal bleeding, No vaginal discharge, No problem reported Objective Vital Signs Date Time Temp Pulse Resp B/P (MAP) Pulse Ox O2 Delivery O2 Flow Rate FiO2 02/13/18 08:18 36.6 80 20 111/71 (84) Room Air 02/13/18 08:00 Room Air 02/12/18 23:40 36.7 81 18 107/69 (82) Room Air 02/12/18 23:40 Room Air 02/12/18 19:30 36.8 79 20 132/74 (93) Room Air 02/12/18 15:30 36.7 82 20 113/71 (85) Room Air 02/12/18 15:30 Room Air 02/12/18 12:40 20 98 02/12/18 11:40 22 98 02/12/18 11:00 36.8 83 20 120/74 (89) 02/12/18 10:40 20 97 02/12/18 09:40 20 98 02/12/18 08:40 18 98 Physical Exam General Appearance: WELL-APPEARING, NO APPARENT DISTRESS Abdomen: soft Fundus: Firm, Non-Tender, Relation to Umbilicus (2 below U) Incision Description: Clean, Dry & Intact Extremities: no calf tenderness Laboratory Results Last 24 Hours Test 02/13/18 06:21 Hemoglobin 9.2 g/dL Hematocrit 28.1 % Assessment and Plan Problem List Medical Problems: (1) Dehydration Status: Acute (2) Elevated d-dimer Status: Acute (3) Epigastric abdominal pain Status: Acute (4) Gallstones Status: Acute (5) contractions Status: Acute Post-Op Day#: 2 Continue Routine Care: expected post-op progress continue current care plan
[2018-02-13] MEDS ORDERED: OXYC-57 PO (08:38)
[2018-02-13] MEDS ORDERED: MTR600X PO (08:38)
[2018-02-13] MEDS: LACTATED RINGER'S 1000ML 1,000 ML IV SCH ×3 (10:24→11:18)
[2018-02-13] MEDS: MAGNESIUM HYDROXIDE SUSP 30 ML UDC PO SCH (11:15)
[2018-02-13 15:30] VITALS: BP 119/73; PULSE 85; TEMP 36.4
[2018-02-13] MEDS: SENNA 8.6 MG TAB PO SCH (21:30)
[2018-02-13] MEDS ORDERED: BISACODYL 10 MG SUPP PR PRN (21:30)
[2018-02-13 23:40] VITALS: BP 129/77; PULSE 84; TEMP 36.5; O2SAT 97
[2018-02-14] MEDS: OXYCODONE/ACETAMINOPHEN 5-325 TAB PO PRN ×3 (02:16→10:35)
[2018-02-14] MEDS: IBUPROFEN 600 MG TAB PO PRN ×3 (06:13→14:49)
--- NOTE | 2018-02-14 06:28 | Progress Note ---
Subjective February 14, 2018. Subjective conversation w/ patient Ambulation: ambulating normally Voiding: no voiding problems Passing Gas: Yes Diet Tolerance: Regular Diet Lochia: Small Feeding Type: Breast Feeding Pain: Moderate pain localized to incision, improved with analgesia Review of Systems Constitutional: No fever, No chills Respiratory: No shortness of breath Cardiac: No chest pain Abdomen: No nausea, No vomiting Objective Vital Signs Date Time Temp Pulse Resp B/P (MAP) Pulse Ox O2 Delivery O2 Flow Rate FiO2 02/13/18 23:40 36.5 84 16 129/77 (94) 97 Room Air 02/13/18 23:40 Room Air 02/13/18 15:30 Room Air 02/13/18 15:30 36.4 85 20 119/73 (88) Room Air 02/13/18 08:18 36.6 80 20 111/71 (84) Room Air 02/13/18 08:00 Room Air Physical Exam General Appearance: WELL-APPEARING, WD/WN, NO APPARENT DISTRESS Abdomen: soft Fundus: Firm, Tender, Relation to Umbilicus (2 below u) Incision Description: Clean, Dry & Intact Extremities: no calf tenderness, + pedal edema Assessment and Plan Problem List Medical Problems: (1) Dehydration Status: Acute (2) Elevated d-dimer Status: Acute (3) Epigastric abdominal pain Status: Acute (4) Gallstones Status: Acute (5) contractions Status: Acute Post-Op Day#: 3 Continue Routine Care: Resident Physician Supervision Note: I was present with Dr. Keith during the history and exam. I discussed the case with the resident and agree with the findings and plan as documented in the note. Any exceptions or clarifications are listed here: [None] Documented By: Tanya De León 27F s/p for di/di twin with discrepancy between weight and reversed end diastolic flow of baby B day 3 - A+, Rubella Immune, GBS +ve - Vital signs reviewed and WNL - pt was able to have a BM w/suppository - Encourage ambulation, monitor and control pain - pt will require f/u glucose tolerance test in office - pt ready for d/c today and will be counselled on d/c instructions Resident Tracking Resident Involvement: Resident Care Provided Care Provided: OB Delivery
[2018-02-14 07:45] VITALS: BP 132/83; PULSE 86; TEMP 36.5; O2SAT 98
[2018-02-14] MEDS: PRENATAL VITAMIN TAB PO SCH (07:45)
[2018-02-14] MEDS ORDERED: FERROUS SULFATE 325 MG TAB PO SCH (08:00)
[2018-02-14 08:05] VITALS: O2SAT 98
--- NOTE | 2018-02-14 13:49 | DISCHARGE SUMMARY ---
ADMITTING DIAGNOSES: 1. Complicated at 36 weeks gestational age. 2. Diamniotic dichorionic twin gestation. 3. Discordant growth. 4. Reversed end diastolic flow of baby B. 5. Diet-controlled gestational diabetes. DISCHARGE DIAGNOSES: Same. PROCEDURES PERFORMED: Primary low cervical transverse section. DISCHARGE MEDICATIONS: 1. Percocet 5/325 1-2 p.o. q. 4-6 hours p.r.n. pain. 2. Motrin 600 mg p.o. q. 6 hours p.r.n. pain. ADMISSION HISTORY: The patient is a 27-year-old 2, para 1 with an EDC of March 11 at 36 and 0/7 weeks gestational age who is admitted for a di/di twin with discordance and reversed end diastolic flow of baby B. The patient was seen in the office on the day of admission for routine care. Her twin gestation has been diagnosed in the first trimester and she has been followed per a di/di protocol. The patient has been having growth ultrasounds which showed slight discrepancy between the babies. The babies are male and female. The patient was seen today for a growth scan which showed baby A at the 50th percentile, baby B at the 5th percentile with reversed end diastolic flow. The case was discussed with Dr. Omer Candelaria, Maternal- Medicine specialist in [place], who recommended admission and delivery. The patient's course was remarkable for gestational diabetes, diet controlled. Laboratory values show a blood type of A positive, antibody negative, rubella immune, hepatitis B negative. She had a negative cell free DNA screening and a positive third trimester beta strep culture. PHYSICAL EXAMINATION: GENERAL: Admission physical showed a gravid female, in no acute distress. HEENT: Unremarkable. NECK: Supple. LUNGS: Clear. HEART: With a regular rhythm and rate. ABDOMEN: Gravid with a twin gestation, vertex breech presentation, positive heart tones. Estimated weight of 10 pounds. PELVIC: Showed closed and posterior. EXTREMITIES: Showed +1 edema. NEUROLOGIC: Grossly intact. ADMISSION LABORATORY VALUES: Showed an H and H of 11.0 and 33.2. HOSPITAL COURSE: The case was discussed with Dr. Omer Candelaria, Maternal- Medicine specialist at [place] who recommended delivery because of the end reversed diastolic flow. With baby B in a breech presentation, the patient had previously opted for a planned primary section, given the discordance and reversed end diastolic flow, I do not believe induction of labor was prudent. The patient was taken to the operating room where she underwent the above-listed procedures. Operative findings showed a viable twin gestation. Baby A, male, delivered from vertex presentation with Apgars of 9 and 9, and weight of 5 pounds 15 ounces. Baby B delivered from a rosendo breech presentation, female, Apgars of 9 and 9 and a weight of 4 pounds 7 ounces. Placenta sent for pathological evaluation. Normal-appearing adnexa bilaterally. Postoperatively, the patient did well. Akbar catheter was removed on the first postoperative day. H and H came back at 9.4 and 27.7. By the 3rd postoperative day, the patient was ambulating without difficulty and tolerating a regular diet. She was given the routine discharge instructions and the prescriptions for the medications as listed as above. She will follow up in the office in 2 weeks' time for a postoperative check, but as always she has been instructed to call with any questions, problems, or difficulties.
[2018-02-14 15:30] VITALS: BP_DIAS 83; PULSE 86; TEMP 36.5
[2018-02-15] MEDS ORDERED: BISACODYL 10 MG SUPP PR PRN (21:00)
== END 2018-02-14 15:30 | disposition home or self-care (01) | DRG 765 ==
LOC: C.OPB 15:41 → C.LD 15:41 → C.OPB 17:28 → C.LD 17:28 → C.OBG 22:36
PROVIDERS: ADMIT Obstetrics & Gynecology; ATTEND Obstetrics & Gynecology
PROC: 10D00Z1 Extraction of Products of Conception, Low, Open Approach (ICD-10-PCS; principal; 2018-02-11 18:23)
DX: O32.1XX2 Maternal care for breech presentation, fetus 2 (principal); O36.5932 Maternal care for other known or suspected poor fetal growth, third trimester, fetus 2; O30.043 Twin pregnancy, dichorionic/diamniotic, third trimester; O36.8932 Maternal care for other specified fetal problems, third trimester, fetus 2; O24.420 Gestational diabetes mellitus in childbirth, diet controlled; O99.824 Streptococcus B carrier state complicating childbirth; Z3A.36 36 weeks gestation of pregnancy; Z37.2 Twins, both liveborn